=== PATIENT | female | born 1970 | race Caucasian/White ===

== ENCOUNTER 2020-01-27 22:06 | Emergency (ER) | payer OTHER ==
[~2020-01-27] VITALS: Ht 165.1 cm; Wt 71.7 kg
[2020-01-27 22:11] VITALS: BP 178/108; Ht 165.1 cm; Wt 71.7 kg
[2020-01-27 23:12] LABS: BASOPHIL % 0.6 % (0-2); PLATELET COUNT 252 x10^3mcL (130-400)
[2020-01-27 23:13] LABS: RED CELL DISTRIBUTION WIDTH 18.3 % (11.5-14.5)
[2020-01-27 23:20] LABS: CARBON DIOXIDE 24.3 mmol/L (21-32); CHLORIDE SERUM 106 mmol/L (98-107); CREATININE SERUM 0.7 mg/dL (0.6-1.0); GFR1 > 60 mL/min; GLUCOSE SERUM 114 mg/dL (74-106); POTASSIUM SERUM 3.7 mmol/L (3.5-5.1); SODIUM SERUM 144 mmol/L (136-145)
[2020-01-27 23:24] LABS: ALBUMIN 4.3 g/dL (3.4-5.0); ALKALINE PHOSPHATASE 120 U/L (46-116); ALT/SGPT 181 U/L (14-59); AST/SGOT 179 U/L (15-37); BILIRUBIN TOTAL 0.3 mg/dL (0.20-1.00)
[2020-01-27 23:25] LABS: TOTAL PROTEIN, SERUM 8.9 g/dL (6.4-8.2)
== END 2020-01-28 00:16 | disposition home or self-care (01) ==
LOC: ED 22:06
PROVIDERS: Emergency Medicine
DX: N93.8 Other specified abnormal uterine and vaginal bleeding (principal); R94.5 Abnormal results of liver function studies
CPT/HCPCS: 36415; J1885